=== PATIENT | female | born 1970 | race Two or more races ===

== ENCOUNTER 2017-12-14 09:56 | Outpatient (CLI) | payer MEDICAID ==
[2017-12-14 13:18] LABS: ALBUMIN 3.7 g/dL (3.2-5.5); ALBUMIN/GLOBULIN RATIO 1.1 (1.0-2.2); BILIRUBIN,TOTAL 0.2 mg/dL (0.2-1.0); CALCIUM 8.4 mg/dL (8.5-10.3); CREATININE 0.7 mg/dL (0.4-1.0)
[2017-12-14 13:58] LABS: HEMOGLOBIN A1C 1.42 g/dL; HEMOGLOBIN A1C % 10.3 % (4.6-6.2)
== END 2017-12-14 09:57 | disposition home or self-care (01) ==
LOC: LAB.N 09:56
PROVIDERS: ATTEND Nurse Practitioner Gerontology
DX: E11.9 Type 2 diabetes mellitus without complications (principal); I10 Essential (primary) hypertension
CPT/HCPCS: 36415; 80053; 83036

== ENCOUNTER 2018-08-20 13:00 | Outpatient (CLI) | payer MEDICAID ==
[2018-08-20 18:24] LABS: CALCIUM 8.8 mg/dL (8.5-10.3); CREATININE 0.7 mg/dL (0.4-1.0)
[2018-08-20 18:46] LABS: HB2 TOTAL 15.4 g/dL; HEMOGLOBIN A1C 1.14 g/dL; HEMOGLOBIN A1C % 8.9 % (4.6-6.2)
== END 2018-08-20 23:59 | disposition home or self-care (01) ==
LOC: LAB.N 13:00
PROVIDERS: ATTEND Family Medicine
DX: E11.65 Type 2 diabetes mellitus with hyperglycemia (principal)
CPT/HCPCS: 36415; 80048; 81599; 83036; 84681

== ENCOUNTER 2019-09-29 08:18 | Outpatient (CLI) | payer MEDICAID ==
[2019-09-29 12:56] LABS: BASOPHILS % (AUTO) 0.4 %; EOSINOPHILS # (AUTO) 0.1 10^3/uL (0.0-0.7); EOSINOPHILS % (AUTO) 1.6 %; HGB - HEMOGLOBIN 13.2 g/dL (12.0-16.0); LYMPHOCYTES # (AUTO) 2.9 10^3/uL (1.5-3.5); LYMPHOCYTES % (AUTO) 40.2 %; MEAN CORPUSCULAR HEMOGLOBIN 27.7 pg (27.0-31.0); MEAN CORPUSCULAR HGB CONC 31.7 g/dL (32.0-36.0); MEAN CORPUSCULAR VOLUME 87.2 fL (81.0-99.0); MEAN PLATELET VOLUME 10.2 fL (7.9-10.8); MONOCYTES # (AUTO) 0.5 10^3/uL (0.0-1.0); MONOCYTES % (AUTO) 6.8 %; NEUTROPHILS # (AUTO) 3.7 10^3/uL (1.5-6.6); NEUTROPHILS % (AUTO) 50.9 %; PLT - PLATELET COUNT 282 10^3/uL (130-450); RED BLOOD COUNT 4.77 10^6/uL (4.20-5.40); RED CELL DISTRIBUTION WIDTH 13.2 % (12.0-15.0); WHITE BLOOD COUNT 7.3 x10^3/uL (4.8-10.8)
[2019-09-29 13:19] LABS: ALBUMIN 3.7 g/dL (3.2-5.5); ALKALINE PHOSPHATASE 54 IU/L (42-121); ALT ALANINE AMINOTRANSFERASE 23 IU/L (10-60); BILIRUBIN,TOTAL 0.5 mg/dL (0.2-1.0); BUN - BLOOD UREA NITROGEN 16 mg/dL (6-20); CALCIUM 8.7 mg/dL (8.5-10.3); CARBON DIOXIDE - CO2 23 mmol/L (21-32); CHLORIDE 105 mmol/L (101-111); CHOL/HDL RATIO 4.3 (<4.4); CHOLESTEROL 216 mg/dL; CREATININE 0.7 mg/dL (0.4-1.0); GFR - MDRD 89 (>89); GLUCOSE 161 mg/dL (70-100); HDL CHOLESTEROL 50 mg/dL; LDL CHOLESTEROL,CALCULATED 118 mg/dL; LDL/HDL RATIO 2.4 (<4.4); SODIUM 136 mmol/L (135-145); TOTAL PROTEIN 7.5 g/dL (6.7-8.2); VLDL CHOLESTEROL 48 mg/dL
[2019-09-29 13:22] LABS: HB2 TOTAL 13.2 g/dL; HEMOGLOBIN A1C 0.98 g/dL; HEMOGLOBIN A1C % 8.9 % (4.6-6.2)
[2019-09-29 14:18] LABS: AST ASPARTATE AMINOTRANSFERASE 22 IU/L (10-42)
== END 2019-09-29 23:59 | disposition home or self-care (01) ==
LOC: LAB.N 08:18
PROVIDERS: ATTEND Nurse Practitioner Gerontology
DX: E11.65 Type 2 diabetes mellitus with hyperglycemia (principal); E78.5 Hyperlipidemia, unspecified; I10 Essential (primary) hypertension
CPT/HCPCS: 36415; 80053; 80061; 83036; 83721; 85025

== ENCOUNTER 2020-05-04 10:33 | Outpatient (CLI) | payer MEDICAID ==
[2020-05-04 11:39] LABS: BASOPHILS % (AUTO) 0.5 %; EOSINOPHILS # (AUTO) 0.3 10^3/uL (0.0-0.7); EOSINOPHILS % (AUTO) 3.9 %; HGB - HEMOGLOBIN 13.6 g/dL (12.0-16.0); LYMPHOCYTES # (AUTO) 2.8 10^3/uL (1.5-3.5); LYMPHOCYTES % (AUTO) 33.4 %; MEAN CORPUSCULAR HEMOGLOBIN 28.6 pg (27.0-31.0); MEAN CORPUSCULAR HGB CONC 32.5 g/dL (32.0-36.0); MEAN PLATELET VOLUME 9.7 fL (7.9-10.8); MONOCYTES # (AUTO) 0.6 10^3/uL (0.0-1.0); MONOCYTES % (AUTO) 6.7 %; NEUTROPHILS # (AUTO) 4.7 10^3/uL (1.5-6.6); NEUTROPHILS % (AUTO) 55.1 %; PLT - PLATELET COUNT 270 10^3/uL (130-450); RED BLOOD COUNT 4.75 10^6/uL (4.20-5.40); RED CELL DISTRIBUTION WIDTH 12.5 % (12.0-15.0); WHITE BLOOD COUNT 8.5 x10^3/uL (4.8-10.8)
[2020-05-04 13:20] LABS: ALBUMIN 4.2 g/dL (3.2-5.5); ALBUMIN/GLOBULIN RATIO 1.1 (1.0-2.2); ALKALINE PHOSPHATASE 56 IU/L (42-121); ALT ALANINE AMINOTRANSFERASE 35 IU/L (10-60); AST ASPARTATE AMINOTRANSFERASE 36 IU/L (10-42); BILIRUBIN,TOTAL 0.9 mg/dL (0.2-1.0); BUN - BLOOD UREA NITROGEN 33 mg/dL (6-20); CALCIUM 9.1 mg/dL (8.5-10.3); CARBON DIOXIDE - CO2 21 mmol/L (21-32); CHLORIDE 103 mmol/L (101-111); CHOL/HDL RATIO 4.5 (<4.4); CHOLESTEROL 206 mg/dL; CREATININE 1.1 mg/dL (0.4-1.0); GLUCOSE 161 mg/dL (70-100); HDL CHOLESTEROL 46 mg/dL; LDL CHOLESTEROL,CALCULATED 113 mg/dL; LDL/HDL RATIO 2.5 (<4.4); SODIUM 132 mmol/L (135-145); TOTAL PROTEIN 8.2 g/dL (6.7-8.2); VLDL CHOLESTEROL 47 mg/dL
[2020-05-04 16:07] LABS: HB2 TOTAL 14.9 g/dL; HEMOGLOBIN A1C 1.11 g/dL
== END 2020-05-04 23:59 | disposition home or self-care (01) ==
LOC: LAB.WCP 10:33
PROVIDERS: ATTEND Nurse Practitioner Family
DX: E11.65 Type 2 diabetes mellitus with hyperglycemia (principal); I10 Essential (primary) hypertension; E78.5 Hyperlipidemia, unspecified
CPT/HCPCS: 36415; 80053; 80061; 83036; 83721; 84443; 85025

== ENCOUNTER 2020-10-26 09:06 | Outpatient (CLI) | payer MEDICAID ==
[2020-10-26 11:58] LABS: HEMOGLOBIN A1c% 9.2 % (4.27-6.07)
[2020-10-26 12:21] LABS: CALCIUM 9.4 mg/dL (8.5-10.3); CREATININE 0.8 mg/dL (0.4-1.0)
== END 2020-10-26 23:59 | disposition home or self-care (01) ==
LOC: LAB.WCP 09:06
PROVIDERS: ATTEND Nurse Practitioner Family
DX: E11.8 Type 2 diabetes mellitus with unspecified complications (principal)
CPT/HCPCS: 36415; 80048; 83036

== ENCOUNTER 2020-11-18 00:44 | Emergency (ER) | payer MEDICAID ==
[2020-11-18] MEDS ORDERED: IPRATROPIUM/ALBUTEROL 3 ML NEB INH STA ×3 (01:11→02:54)
[2020-11-18] MEDS ORDERED: ALBUTEROL NEB 2.5 MG/3 ML INH STA (02:34)
--- NOTE | 2020-11-18 02:34 | ED Physician Documentation ---
History of Present Illness - Stated complaint Stated Complaint: SOA/COUGHING - Chief complaint Chief Complaint: Resp - History obtained from History obtained from: Patient - Additonal information Additional information: 50yF with pmh asthma, NIDDM on metformin, htn, recent covid diagnosis 3 weeks ago not requiring hospitalization p/w sob gradually worsening over the past couple days a/w nonproductive cough and wheezing. denies fevers. she is using her inhaler q2h to q4h with some relief but the coughing has progressed to R lower rib pain, aching mild, intermittent, occurring with cough. patient denies fevers, hemoptysis, prior history of clots, leg swelling. Review of Systems Ten Systems: 10 systems reviewed and negative Constitutional: denies: Fever, Chills Cardiac: denies: Chest pain / pressure Respiratory: reports: Dyspnea, Cough GI: denies: Nausea PD PAST MEDICAL HISTORY - Past Medical History Past Medical History: Yes Cardiovascular: Hypertension Respiratory: Asthma Endocrine/Autoimmune: Type 2 diabetes - Past Surgical History Past Surgical History: No - Present Medications Home Medications: Ambulatory Orders Medication Instructions Recorded Confirmed Albuterol Sulfate [Proair Hfa 1 puffs PRN 11/18/20 Inhaler] Canagliflozin [Invokana] 100 mg PO DAILY 11/18/20 11/18/20 Glipizide [Glipizide Xl] 10 mg PO DAILY 11/18/20 11/18/20 Ipratropium/Albuterol [Duoneb] 3 ml INH Q6H PRN #30 neb 11/18/20 Lisinopril [Zestril] 40 mg PO DAILY 11/18/20 11/18/20 Nebulizer and Compressor [Easy Air 1 each MC 1-2XD #1 each 11/18/20 Compressor Nebulizer] Simvastatin [Zocor] 80 mg PO HS 11/18/20 11/18/20 metFORMIN [Glucophage] 1,000 mg PO DAILY 11/18/20 11/18/20 predniSONE [Deltasone] 60 mg PO DAILY 5 Days #15 tab 11/18/20 - Allergies Allergies/Adverse Reactions: Allergies Allergy/AdvReac Type Severity Reaction Status Date / Time No Known Drug Allergies Allergy Verified 11/18/20 01:00 - Social History Does the pt smoke?: No Smoking Status: Never smoker Does the pt drink ETOH?: No Does the pt have substance abuse?: No - Immunizations Immunizations are current?: Yes - POLST Patient has POLST: No PD ED PE NORMAL - Vitals Vital signs reviewed: Yes - General General: Alert and oriented X 3, No acute distress, Well developed/nourished - HEENT HEENT: Atraumatic, PERRL, EOMI - Neck Neck: Supple, no meningeal sign - Cardiac Cardiac: RRR, Other - Respiratory Respiratory: No respiratory distress, Other (BL diffuse expiratory wheezing. no crackles, rhonchi. no increased wob) - Abdomen Abdomen: Non tender, Non distended - Female Female : Deferred - Rectal Rectal: Deferred - Back Back: No spinal TTP - Derm Derm: Normal color - Extremities Extremities: No deformity, No edema - Neuro Neuro: Alert and oriented X 3 - Psych Psych: Normal mood, Normal affect Results - Vitals Vitals: Vital Signs - 24 hr 11/18/20 11/18/20 11/18/20 00:54 01:25 02:29 Temperature 36.3 C L Heart Rate 84 78 76 Respiratory 16 18 16 Rate Blood Pressure 150/85 H O2 Saturation 96 11/18/20 11/18/20 11/18/20 02:40 02:59 03:00 Temperature 36.8 C Heart Rate 76 78 75 Respiratory 16 18 16 Rate Blood Pressure 144/57 H O2 Saturation 98 Oxygen O2 Source Room air PD MEDICAL DECISION MAKING - ED course ED course: 50-year-old woman presents with asthma exacerbation in the setting of convalescence from COVID-19 a couple weeks prior. Patient has had significant improvement with nebulizer treatments in the emergency department. Her chest x- ray appears clear and her EKG has no contributory findings. We will have her follow-up with her primary doctor this week. Return precautions given. Departure - Departure Disposition: 01 Home, Self Care Clinical Impression: Asthma exacerbation Condition: Good Instructions: Asthma Dc Prescriptions: predniSONE [Deltasone] 60 mg PO DAILY 5 Days #15 tab Ipratropium/Albuterol [Duoneb] 3 ml INH Q6H PRN #30 neb PRN Reason: Asthma Nebulizer and Compressor [Easy Air Compressor Nebulizer] 1 each MC 1-2XD #1 each Comments: You were seen in the emergency department for an asthma exacerbation after having COVID-19. You do not have pneumonia on your x-ray and your EKG doesn't show any concerning findings. We treated you with nebulized albuterol and ipratropium and you had significant improvement in your lung exam. I am prescribing steroids and nebulizer treatments for home. Return to the emergency department if you start to cough up blood, have leg swelling, fevers, severe shortness of breath that doesn't respond to your asthma treatments, or other concerning symptoms. Follow up with your primary doctor this week. [facility]. [address] [place] [id number] ~6.7 vt
[2020-11-18 03:35] VITALS: BP 147/62
--- NOTE | 2020-11-18 09:02 | XRAY Report ---
PROCEDURE: Chest 1 View X-Ray INDICATIONS: Short of breath TECHNIQUE: One view of the chest was acquired. COMPARISON: None FINDINGS: Surgical changes and devices: None. Lungs and pleura: No pleural effusions or pneumothorax. Lungs are clear. Mediastinum: Mediastinal contours appear normal. Heart size is normal. Bones and chest wall: No suspicious bony lesions. Overlying soft tissues appear unremarkable. IMPRESSION: Normal portable chest. Note: No significant discrepancy from the preliminary report. Reviewed by: Jeovany Dennis MD on 11/18/2020 8:01 AM [facility] Approved by: Jeovany Dennis MD on 11/18/2020 8:01 AM [facility] Station ID: [id number]
== END 2020-11-18 03:36 | disposition home or self-care (01) ==
LOC: ED 00:44
DX: J45.901 Unspecified asthma with (acute) exacerbation (principal); Z86.16 Personal history of COVID-19; E11.9 Type 2 diabetes mellitus without complications; Z79.84 Long term (current) use of oral hypoglycemic drugs; I10 Essential (primary) hypertension
CPT/HCPCS: 93005; 94640; 99284; 99285

== ENCOUNTER 2020-11-30 08:07 | Emergency (ER) | payer MEDICAID ==
--- NOTE | 2020-11-30 08:14 | ED Physician Documentation ---
PD HPI DYSPNEA - Stated complaint Stated Complaint: SOA - History obtained from History obtained from: Patient - History of Present Illness Timing - onset: How many days ago (severral) Timing - onset during: Light activity Timing - duration: Days (several) Timing - details: Gradual onset, Still present Inciting event(s): Other (history of asthma and has had flare up for few weeks, had improved with steroids and increased MDI. Now with worsening symptoms again the past few days. No fever, mild clear sputum.). No: Out of meds, URI Improved by: No: Inhaler/neb (had been helping but not the past day) Worsened by: Exertion, Coughing. No: Laying flat Associated symptoms: Cough, Wheezing. No: Fever, Hemoptysis, Chest pain / discomfort, Bilateral edema Similar symptoms before: Diagnosis (asthma exac) Recently seen: Emergency Dept (couple weeks ago and Rx with Prednisone and Albuterol MDI with Rx for nebulizer as well.) Review of Systems Constitutional: reports: Myalgias, Fatigue. denies: Fever, Chills Nose: denies: Rhinorrhea / runny nose, Congestion Throat: denies: Sore throat Cardiac: denies: Chest pain / pressure Respiratory: reports: Dyspnea, Cough, Wheezing. denies: Hemoptysis GI: denies: Abdominal Pain, Vomiting, Diarrhea Skin: denies: Rash Musculoskeletal: denies: Back pain, Extremity swelling PD PAST MEDICAL HISTORY - Past Medical History Cardiovascular: Hypertension Respiratory: Asthma Endocrine/Autoimmune: Type 2 diabetes - Past Surgical History Past Surgical History: No - Present Medications Home Medications: Ambulatory Orders Medication Instructions Recorded Confirmed Albuterol Sulfate [Proair Hfa 1 puffs PO DAILY 11/18/20 11/30/20 Inhaler] Canagliflozin [Invokana] 100 mg PO DAILY 11/18/20 11/30/20 Glipizide [Glipizide Xl] 10 mg PO DAILY 11/18/20 11/30/20 Ipratropium/Albuterol [Duoneb] 3 ml INH Q6H PRN #30 neb 11/18/20 11/30/20 Lisinopril [Zestril] 40 mg PO DAILY 11/18/20 11/30/20 Nebulizer and Compressor [Easy Air 1 each MC 1-2XD #1 each 11/18/20 11/30/20 Compressor Nebulizer] Simvastatin [Zocor] 80 mg PO HS 11/18/20 11/30/20 metFORMIN [Glucophage] 1,000 mg PO DAILY 11/18/20 11/30/20 predniSONE [Deltasone] 60 mg PO DAILY 5 Days #15 tab 11/18/20 11/30/20 Albuterol Sulf [Ventolin Hfa 3 - 4 puffs INH Q4HR PRN #1 inhaler 11/30/20 Inhaler] Benzonatate [Tessalon] 100 mg PO TID PRN #20 cap 11/30/20 Doxycycline Monohydrate 150 mg PO BID #14 cap 11/30/20 dexAMETHasone [Decadron] 4 mg PO DAILY #7 tablet 11/30/20 - Allergies Allergies/Adverse Reactions: Allergies Allergy/AdvReac Type Severity Reaction Status Date / Time No Known Drug Allergies Allergy Verified 11/30/20 08:13 - Social History Does the pt smoke?: No Smoking Status: Never smoker Does the pt drink ETOH?: No Does the pt have substance abuse?: No - Immunizations Immunizations are current?: Yes - POLST Patient has POLST: No PD ED PE NORMAL - Vitals Vital signs reviewed: Yes - General General: Alert and oriented X 3, Well developed/nourished - HEENT HEENT: Ears normal, Moist mucous membranes, Pharynx benign - Neck Neck: Supple, no meningeal sign, No adenopathy - Cardiac Cardiac: RRR (mild tachycardia but regular), No murmur - Respiratory Respiratory: No respiratory distress (able to talk in sentences. no accessory muscle use. ). No: Clear bilaterally (diffuse holoexpiratory wheezing. No coarse sounds. ) - Abdomen Abdomen: Soft, Non tender - Derm Derm: Normal color, Warm and dry - Extremities Extremities: No tenderness to palpate, Normal ROM s pain, No edema, No calf tenderness / cord - Neuro Neuro: Alert and oriented X 3, No motor deficit, Normal speech Results - Vitals Vitals: Vital Signs - 24 hr 11/30/20 11/30/20 11/30/20 08:13 08:56 09:43 Temperature 36.3 C L Heart Rate 106 H 86 86 Respiratory 24 20 18 Rate Blood Pressure 178/87 H 119/74 O2 Saturation 95 97 11/30/20 11/30/20 11/30/20 09:54 10:24 10:25 Temperature Heart Rate 80 87 85 Respiratory 14 15 13 Rate Blood Pressure 121/65 O2 Saturation 97 11/30/20 11:04 Temperature Heart Rate 87 Respiratory 16 Rate Blood Pressure 126/63 O2 Saturation 96 Oxygen O2 Source Room air - EKG (time done) 08:11 Rate: Rate (enter#) (93) Rhythm: NSR [place]: Normal Intervals: Normal [place] QRS: Normal Ischemia: Normal ST segments. No: ST elevation c/w ischemia, ST depression - Rads (name of study) chest xray Radiology: Prelim report reviewed (no infiltrates), See rad report PD MEDICAL DECISION MAKING - ED course Complexity details: reviewed results (no infiltrates on xray.), re-evaluated patient (improved quite a bit after 3 nebs. ), considered differential, d/w patient Departure - Departure Disposition: 01 Home, Self Care Clinical Impression: Exacerbation of asthma Qualifiers: Asthma severity: mild Asthma persistence: intermittent Qualified Code(s): J45.21 - Mild intermittent asthma with (acute) exacerbation Dyspnea Qualifiers: Dyspnea type: shortness of breath Qualified Code(s): R06.02 - Shortness of breath Condition: Stable Record reviewed to determine appropriate education?: Yes Follow-Up: SANDRA CARY, ROSALES, SR. MERCHANDISE PLANNER [Primary Care Provider] - Prescriptions: Albuterol Sulf [Ventolin Hfa Inhaler] 3 - 4 puffs INH Q4HR PRN #1 inhaler PRN Reason: Shortness Of Air/Wheezing dexAMETHasone [Decadron] 4 mg PO DAILY #7 tablet Doxycycline Monohydrate 150 mg PO BID #14 cap Benzonatate [Tessalon] 100 mg PO TID PRN #20 cap PRN Reason: Cough Comments: New with your inhaler or the prescribed previously nebulizer 4 times a day for the next week and extra times as needed for wheezing. Decadron steroid daily for the next week. Add benzonatate if needed for cough. Your chest x-ray does not show any pneumonia. With the persistent asthma flareup, there is concern for possible bronchial infection and so at this point I would add doxycycline antibiotic twice daily for a week. Recheck if not improved well over the next several days return if worsening. Forms: Activity restrictions Discharge Date/Time: 11/30/20 11:04
[2020-11-30] MEDS ORDERED: IPRATROPIUM/ALBUTEROL 3 ML NEB INH STA (08:34)
[2020-11-30] MEDS ORDERED: BENZONATATE 100 MG CAPSULE PO STA (08:35)
[2020-11-30] MEDS ORDERED: CHERRY SYRUP 10 ML UDC PO ONE (08:35)
[2020-11-30] MEDS ORDERED: DEXAMETHASONE 10 MG/ML VIAL PO STA (08:35)
--- NOTE | 2020-11-30 09:13 | XRAY Report ---
PROCEDURE: Chest 1 View X-Ray INDICATIONS: chest pain/cough/wheeze TECHNIQUE: One view of the chest was acquired. COMPARISON: 11/18/2020 FINDINGS: Surgical changes and devices: None. Lungs and pleura: No pleural effusions or pneumothorax. Lungs are clear. Mediastinum: Mediastinal contours appear normal. Heart size is normal. Bones and chest wall: No suspicious bony lesions. Overlying soft tissues appear unremarkable. IMPRESSION: No acute disease. Reviewed by: Rony Humphreys MD on 11/30/2020 9:12 AM [facility] Approved by: Rony Humphreys MD on 11/30/2020 9:12 AM [facility] Station ID: [id number]
[2020-11-30] MEDS ORDERED: ALBUTEROL NEB 2.5 MG/3 ML INH STA ×2 (09:27→10:04)
[2020-11-30] MEDS ORDERED: DOXYCYCLINE 100 MG TABLET PO STA (10:04)
[2020-11-30 11:05] VITALS: BP 126/63
== END 2020-11-30 11:04 | disposition home or self-care (01) ==
LOC: ED 08:07
DX: J45.21 Mild intermittent asthma with (acute) exacerbation (principal); I10 Essential (primary) hypertension; E11.9 Type 2 diabetes mellitus without complications; Z79.84 Long term (current) use of oral hypoglycemic drugs
CPT/HCPCS: 71045; 93005; 94150; 94640; 94664; 99284; 99285; A9270

== ENCOUNTER 2021-02-22 08:00 | Outpatient (CLI) | payer MEDICAID ==
[2021-02-22 12:17] LABS: ESTIMATED AVERAGE GLUCOSE 249 mg/dL (70-100); HEMOGLOBIN A1c% 10.3 % (4.27-6.07)
[2021-02-22 12:21] LABS: CALCIUM 9.1 mg/dL (8.5-10.3); CREATININE 0.8 mg/dL (0.4-1.0); POTASSIUM 4.2 mmol/L (3.5-5.0)
== END 2021-02-22 23:59 | disposition home or self-care (01) ==
LOC: LAB.WCP 08:00
PROVIDERS: ATTEND Nurse Practitioner Family
DX: E11.9 Type 2 diabetes mellitus without complications (principal)
CPT/HCPCS: 36415; 80048; 83036

== ENCOUNTER 2021-05-21 08:00 | Outpatient (CLI) | payer MEDICAID | END 2021-05-21 23:59 | disposition home or self-care (01) | LOC: LAB.N 08:00 | PROVIDERS: ATTEND Nurse Practitioner | DX: R07.0 Pain in throat (principal) | CPT/HCPCS: 87070 ==

== ENCOUNTER 2021-08-26 07:14 | Outpatient (CLI) | payer MEDICAID ==
[2021-08-26 12:27] LABS: ALBUMIN 3.9 g/dL (3.2-5.5); ALBUMIN/GLOBULIN RATIO 1.2 (1.0-2.2); ALKALINE PHOSPHATASE 42 IU/L (42-121); ALT ALANINE AMINOTRANSFERASE 34 IU/L (10-60); AST ASPARTATE AMINOTRANSFERASE 25 IU/L (10-42); BILIRUBIN,TOTAL 0.3 mg/dL (0.2-1.0); BUN - BLOOD UREA NITROGEN 10 mg/dL (6-20); CALCIUM 9.2 mg/dL (8.5-10.3); CARBON DIOXIDE - CO2 24 mmol/L (21-32); CHLORIDE 103 mmol/L (101-111); CHOL/HDL RATIO 3.5 (<4.4); CHOLESTEROL 193 mg/dL; CREATININE 0.7 mg/dL (0.4-1.0); GFR - MDRD 88 (>89); GLUCOSE 337 mg/dL (70-100); HDL CHOLESTEROL 55 mg/dL; LDL CHOLESTEROL,CALCULATED 112 mg/dL; POTASSIUM 3.4 mmol/L (3.5-5.0); SODIUM 137 mmol/L (135-145); TOTAL PROTEIN 7.1 g/dL (6.7-8.2); TRIGLYCERIDES 132 mg/dL; VLDL CHOLESTEROL 26 mg/dL
[2021-08-26 12:37] LABS: BASOPHILS % (AUTO) 0.3 %; EOSINOPHILS # (AUTO) 0.4 10^3/uL (0.0-0.7); EOSINOPHILS % (AUTO) 4.3 %; HCT - HEMATOCRIT 41.6 % (37.0-47.0); HGB - HEMOGLOBIN 13.5 g/dL (12.0-16.0); LYMPHOCYTES # (AUTO) 3.3 10^3/uL (1.5-3.5); LYMPHOCYTES % (AUTO) 38.9 %; MEAN CORPUSCULAR HEMOGLOBIN 28.4 pg (27.0-31.0); MEAN CORPUSCULAR HGB CONC 32.5 g/dL (32.0-36.0); MEAN CORPUSCULAR VOLUME 87.4 fL (81.0-99.0); MONOCYTES # (AUTO) 0.6 10^3/uL (0.0-1.0); MONOCYTES % (AUTO) 7.5 %; NEUTROPHILS # (AUTO) 4.2 10^3/uL (1.5-6.6); NEUTROPHILS % (AUTO) 48.8 %; PLT - PLATELET COUNT 263 10^3/uL (130-450); RED BLOOD COUNT 4.76 10^6/uL (4.20-5.40); RED CELL DISTRIBUTION WIDTH 12.8 % (12.0-15.0); WHITE BLOOD COUNT 8.6 x10^3/uL (4.8-10.8)
[2021-08-26 12:40] LABS: ESTIMATED AVERAGE GLUCOSE 309 mg/dL (70-100); HEMOGLOBIN A1c% 12.4 % (4.27-6.07)
[2021-08-26 12:53] LABS: BILIRUBIN,URINE NEGATIVE (NEGATIVE); GLUCOSE, URINE (UA) >=1000 mg/dL (NEGATIVE); KETONES,URINE (UA) NEGATIVE (NEGATIVE); LEUKOCYTE ESTERASE, URINE NEGATIVE (NEGATIVE); NITRITE,URINE NEGATIVE (NEGATIVE); OCCULT BLOOD,URINE NEGATIVE (NEGATIVE); PH,URINE 5.5 PH (5.0-7.5); PROTEIN,URINE NEGATIVE (NEGATIVE); UROBILINOGEN,URINE 0.2 (NORMAL) E.U./dL (NORMAL)
[2021-08-26 13:01] LABS: CLARITY,URINE CLEAR (CLEAR)
[2021-08-26 13:07] LABS: CREATININE,URINE 100.2 mg/dL; MICROALBUMIN,URINE 0.3 mg/dL (0-300.0)
[2021-08-26 13:21] LABS: THYROID STIMULATING HORMONE 0.49 uIU/mL (0.34-5.60)
[2021-08-26 13:43] LABS: BACTERIA,URINE Rare /HPF (None Seen); RBC,URINE None Seen /HPF (0-5); SQUAMOUS EPITHELIAL CELL,UR FEW Squamous (<= Few); WBC,URINE 0-3 /HPF (0-5)
== END 2021-08-26 07:15 | disposition home or self-care (01) ==
LOC: LAB.N 07:14
PROVIDERS: ATTEND Nurse Practitioner
DX: I10 Essential (primary) hypertension (principal); E78.5 Hyperlipidemia, unspecified; E66.9 Obesity, unspecified; R53.83 Other fatigue
CPT/HCPCS: 36415; 80053; 80061; 81001; 82043; 82570; 83036; 83721; 84443; 85025; 87086

== ENCOUNTER 2021-10-04 08:00 | Outpatient (CLI) | payer MEDICAID ==
[2021-10-04 14:06] LABS: ESTIMATED AVERAGE GLUCOSE 280 mg/dL (70-100); HEMOGLOBIN A1c% 11.4 % (4.27-6.07)
== END 2021-10-04 23:59 ==
LOC: LAB.WCP 08:00
PROVIDERS: ATTEND Nurse Practitioner
DX: E11.8 Type 2 diabetes mellitus with unspecified complications (principal)
CPT/HCPCS: 36415; 83036

== ENCOUNTER 2021-12-30 08:00 | Outpatient (CLI) | payer MEDICAID ==
[2021-12-30 20:41] LABS: BASOPHILS % (AUTO) 0.4 %; EOSINOPHILS # (AUTO) 0.3 10^3/uL (0.0-0.7); EOSINOPHILS % (AUTO) 3.3 %; HCT - HEMATOCRIT 39.9 % (37.0-47.0); HGB - HEMOGLOBIN 12.8 g/dL (12.0-16.0); LYMPHOCYTES # (AUTO) 4.4 10^3/uL (1.5-3.5); LYMPHOCYTES % (AUTO) 43.8 %; MEAN CORPUSCULAR HEMOGLOBIN 27.3 pg (27.0-31.0); MEAN CORPUSCULAR HGB CONC 32.1 g/dL (32.0-36.0); MEAN CORPUSCULAR VOLUME 85.1 fL (81.0-99.0); MEAN PLATELET VOLUME 10.2 fL (7.9-10.8); MONOCYTES # (AUTO) 0.6 10^3/uL (0.0-1.0); NEUTROPHILS # (AUTO) 4.7 10^3/uL (1.5-6.6); NEUTROPHILS % (AUTO) 46.3 %; PLT - PLATELET COUNT 267 10^3/uL (130-450); RED BLOOD COUNT 4.69 10^6/uL (4.20-5.40); RED CELL DISTRIBUTION WIDTH 12.6 % (12.0-15.0); WHITE BLOOD COUNT 10.1 x10^3/uL (4.8-10.8)
[2021-12-30 20:48] LABS: BILIRUBIN,URINE NEGATIVE (NEGATIVE); GLUCOSE, URINE (UA) 250 mg/dL (NEGATIVE); KETONES,URINE (UA) TRACE mg/dL (NEGATIVE); LEUKOCYTE ESTERASE, URINE NEGATIVE (NEGATIVE); NITRITE,URINE NEGATIVE (NEGATIVE); OCCULT BLOOD,URINE NEGATIVE (NEGATIVE); PROTEIN,URINE 30 mg/dL (NEGATIVE); UROBILINOGEN,URINE 0.2 (NORMAL) E.U./dL (NORMAL)
[2021-12-30 20:51] LABS: CLARITY,URINE CLOUDY (CLEAR)
[2021-12-30 20:57] LABS: AMORPHOUS SEDIMENT,UR Marked /LPF; BACTERIA,URINE Rare /HPF (None Seen); RBC,URINE None Seen /HPF (0-5); SQUAMOUS EPITHELIAL CELL,UR FEW Squamous (<= Few); WBC,URINE 0-3 /HPF (0-5)
[2021-12-30 20:58] LABS: CRYSTALS,URINE 0-2 Calcium Oxalate /LPF
[2021-12-30 20:58] LABS: ALBUMIN/GLOBULIN RATIO 1.3 (1.0-2.2); BILIRUBIN,TOTAL 0.3 mg/dL (0.2-1.0); POTASSIUM 3.4 mmol/L (3.5-5.0); TOTAL PROTEIN 7.2 g/dL (6.7-8.2)
== END 2021-12-30 23:59 | disposition home or self-care (01) ==
LOC: LAB.N 08:00
PROVIDERS: ATTEND Family Medicine
DX: R10.9 Unspecified abdominal pain (principal)
CPT/HCPCS: 36415; 80053; 81001; 82150; 83690; 85025; 87086

== ENCOUNTER 2022-02-10 08:20 | Outpatient (CLI) | payer MEDICAID ==
--- NOTE | 2022-02-10 12:30 | Ultrasound Report ---
PROCEDURE: Abdomen Complete INDICATIONS: ABD PAIN TECHNIQUE: Real-time scanning was performed of the abdominal and retroperitoneal organs, with image documentatio n. COMPARISON: None. FINDINGS: Liver: Liver is normal in size and homogeneous in echotexture. Liver is diffusely echogenic. Gallbladder: Gallbladder sonographically normal. No gallstones. Gallbladder wall measures 1.2 mm. No pericholecystic fluid. No sonographic Fernandes sign Biliary ducts: Intrahepatic bile ducts are non-dilated. Extrahepatic bile duct caliber measures 1.9 mm. Normal is 6-7 mm or less in diameter, or 10 mm or less post-cholecystectomy. Pancreas: Visualized portions of the pancreas are sonographically normal. Spleen: Spleen is normal in size and homogeneous in echotexture. Kidneys: Kidneys are normal in size and echotexture. Right kidney measures 12.1 cm long; left kidne y measures 12.3 cm long. No hydronephrosis or nephrolithiasis. No solid masses. Aorta: Visualized aorta is normal in caliber at less than 3 cm. Iliacs: Proximal common iliac arteries are normal in caliber at less than 2.5 cm. IVC: Intrahepatic inferior vena cava is patent. Miscellaneous: No free abdominal fluid. IMPRESSION: Hepatic steatosis. No sonographic evidence of cholelithiasis or cholecystitis. If there is continued clinical concern fo r cholecystitis, consider nuclear medicine scan for additional evaluation. Reviewed by: Ju Sinclair MD, PhD on 02/10/2022 12:28 PM PDT Approved by: Ju Sinclair MD, PhD on 02/10/2022 12:28 PM PDT Station ID: [id number]
== END 2022-02-10 08:21 | disposition home or self-care (01) ==
LOC: DI 08:20
PROVIDERS: ATTEND Family Medicine
DX: K76.0 Fatty (change of) liver, not elsewhere classified (principal); R10.9 Unspecified abdominal pain

== ENCOUNTER 2022-05-26 08:52 | Outpatient (CLI) | payer MEDICAID ==
[2022-05-26 12:06] LABS: BASOPHILS % (AUTO) 0.3 %; EOSINOPHILS % (AUTO) 0.1 %; HCT - HEMATOCRIT 37.4 % (37.0-47.0); LYMPHOCYTES # (AUTO) 2.7 10^3/uL (1.5-3.5); LYMPHOCYTES % (AUTO) 20.4 %; MEAN CORPUSCULAR HEMOGLOBIN 27.4 pg (27.0-31.0); MEAN CORPUSCULAR HGB CONC 32.1 g/dL (32.0-36.0); MEAN CORPUSCULAR VOLUME 85.4 fL (81.0-99.0); MEAN PLATELET VOLUME 10.3 fL (7.9-10.8); MONOCYTES # (AUTO) 0.8 10^3/uL (0.0-1.0); NEUTROPHILS # (AUTO) 9.7 10^3/uL (1.5-6.6); NEUTROPHILS % (AUTO) 72.7 %; PLT - PLATELET COUNT 239 10^3/uL (130-450); RED BLOOD COUNT 4.38 10^6/uL (4.20-5.40); RED CELL DISTRIBUTION WIDTH 13.5 % (12.0-15.0); WHITE BLOOD COUNT 13.4 x10^3/uL (4.8-10.8)
[2022-05-26 13:27] LABS: ESTIMATED AVERAGE GLUCOSE 240 mg/dL (70-100)
[2022-05-26 13:33] LABS: ALBUMIN 3.5 g/dL (3.2-5.5); ALBUMIN/GLOBULIN RATIO 0.9 (1.0-2.2); BILIRUBIN,TOTAL 0.6 mg/dL (0.2-1.0); CALCIUM 8.8 mg/dL (8.5-10.3); CREATININE 0.7 mg/dL (0.4-1.0); POTASSIUM 3.8 mmol/L (3.5-5.0); TOTAL PROTEIN 7.3 g/dL (6.7-8.2)
[2022-05-26 13:41] LABS: CREATININE,URINE 159.5 mg/dL; MICROALBUM/CREATININE RATIO,UR 7.5 ug/mg (<30.0); MICROALBUMIN,URINE 1.2 mg/dL (0-300.0)
== END 2022-05-26 08:53 | disposition home or self-care (01) ==
LOC: LAB.N 08:52
PROVIDERS: ATTEND Nurse Practitioner
DX: E11.8 Type 2 diabetes mellitus with unspecified complications (principal)
CPT/HCPCS: 36415; 80053; 82043; 82570; 83036; 85025

== ENCOUNTER 2022-07-26 09:48 | Emergency (ER) | payer MEDICAID ==
--- NOTE | 2022-07-26 10:02 | ED Physician Documentation ---
PD HPI FOCAL NEURO - Stated complaint Stated Complaint: DIZZY/NUMB TONGUE - History obtained from History obtained from: Patient, Family, Other (area manager) - Additional information Additional information: 52-year-old woman with relatively poorly controlled type 2 diabetes presents with about 3 to 4 days of numbness around both sides of the tongue and periorbital areas that is symmetric, nausea and dizziness as well as shortness of breath. Note made that the area manager tablet did not seem to be working but we were able to get a [employer] fluent in Tagalog to aid in history taking. She been lightheaded for several days, no vertigo. We clarified that its not really so much tongue numbness as it is being inability to taste. She had a cough productive of clear phlegm and shortness of breath and nausea. No fevers but she has had chills. Other than diabetes she has a history of hypertension. She has not checked her blood sugar today but she did check it yesterday, and has both mostly been in the 90s to 1 teens. Review of Systems Ten Systems: 10 systems reviewed and negative Constitutional: reports: Chills, Fatigue. denies: Fever Nose: denies: Rhinorrhea / runny nose Throat: denies: Sore throat Cardiac: denies: Chest pain / pressure Respiratory: reports: Dyspnea, Cough PD PAST MEDICAL HISTORY - Past Medical History Cardiovascular: Hypertension Respiratory: Asthma Endocrine/Autoimmune: Type 2 diabetes - Past Surgical History Past Surgical History: No - Present Medications Home Medications: Ambulatory Orders Medication Instructions Recorded Confirmed Albuterol Sulfate [Proair Hfa 1 puffs PO DAILY 11/18/20 11/30/20 Inhaler] Canagliflozin [Invokana] 100 mg PO DAILY 11/18/20 11/30/20 Glipizide [Glipizide Xl] 10 mg PO DAILY 11/18/20 11/30/20 Ipratropium/Albuterol [Duoneb] 3 ml INH Q6H PRN #30 neb 11/18/20 11/30/20 Lisinopril [Zestril] 40 mg PO DAILY 11/18/20 11/30/20 Nebulizer and Compressor [Easy Air 1 each MC 1-2XD #1 each 11/18/20 11/30/20 Compressor Nebulizer] Simvastatin [Zocor] 80 mg PO HS 11/18/20 11/30/20 metFORMIN [Glucophage] 1,000 mg PO DAILY 11/18/20 11/30/20 predniSONE [Deltasone] 60 mg PO DAILY 5 Days #15 tab 11/18/20 11/30/20 Albuterol Sulf [Ventolin Hfa 3 - 4 puffs INH Q4HR PRN #1 inhaler 11/30/20 Inhaler] Benzonatate [Tessalon] 100 mg PO TID PRN #20 cap 11/30/20 Doxycycline Monohydrate 150 mg PO BID #14 cap 11/30/20 dexAMETHasone [Decadron] 4 mg PO DAILY #7 tablet 11/30/20 Pantoprazole [Protonix] 40 mg PO DAILY #30 tablet 01/02/22 Sucralfate [Carafate] 1 gm PO ACHS #60 tablet 01/02/22 Ondansetron Odt [Zofran] 4 mg TL Q6H PRN #10 tablet 07/26/22 - Allergies Allergies/Adverse Reactions: Allergies Allergy/AdvReac Type Severity Reaction Status Date / Time No Known Drug Allergies Allergy Verified 11/30/20 08:13 - Social History Does the pt smoke?: No Smoking Status: Never smoker Does the pt drink ETOH?: No Does the pt have substance abuse?: No - Immunizations Immunizations are current?: Yes - POLST Patient has POLST: No PD ED PE NORMAL - Vitals Vital signs reviewed: Yes - General General: Alert and oriented X 3, No acute distress - HEENT HEENT: PERRL, EOMI - Neck Neck: Supple, no meningeal sign, No bony TTP - Cardiac Cardiac: RRR, No murmur - Respiratory Respiratory: No respiratory distress, Clear bilaterally - Abdomen Abdomen: Non tender - Back Back: No CVA TTP, No spinal TTP - Derm Derm: Normal color, Warm and dry - Extremities Extremities: No edema, No calf tenderness / cord - Neuro Neuro: Alert and oriented X 3, No motor deficit, No sensory deficit, Normal speech Eye Opening: Spontaneous Motor: Obeys Commands Verbal: Oriented GCS Score: 15 - Psych Psych: Normal mood, Normal affect NIHSS - Time Time: 10:01 - Level of Consciousness Level of consciousness: (0) Alert, Keenly responsive LOC Questions: (0) Answers both Q's correct LOC Commands: (0) Performs both correctly - Gaze Best Gaze: (0) Normal - Visual Visual: (0) No loss - Facial Palsy Facial Palsy: (0) Normal, symmetrical movement - Motor Arms (both separate) Motor Arm (right): (0) No drift Motor Arm (left): (0) No drift - Motor Legs (both separate) Motor Leg (right): (0) No drift Motor Leg (left): (0) No drift - Limb Ataxia Limb Ataxia: (0) Absent - Sensory Sensory: (0) Normal - Best Language Best Language: (0) No aphasia - Dysarthria Dysarthria: (0) Normal - Extinction and Inattention (formally neg Extinction and inattention: (0) No abnormality - Total Score/Results Total Score/Result: 0 Results - Vitals Vitals: Vital Signs - 24 hr 07/26/22 07/26/22 07/26/22 09:55 10:35 11:05 Temperature 37.0 C Heart Rate 83 76 73 Respiratory 19 23 14 Rate Blood Pressure 153/78 H 150/79 H 146/100 H O2 Saturation 100 100 100 07/26/22 07/26/22 11:30 12:00 Temperature Heart Rate 73 74 Respiratory 22 22 Rate Blood Pressure 133/78 H 143/73 H O2 Saturation 99 100 Oxygen O2 Source Room air - EKG (time done) 0951 Rate: Rate (enter#) (81) Rhythm: NSR [place]: LAD Intervals: Normal CT QRS: Low voltage Ischemia: Q waves (v3/4) Compare to prior EKG: Changed from prior EKG (new low voltage and new qwaves septal c/w 11/30/20) - Labs Labs: Laboratory Tests 07/26/22 07/26/22 07/26/22 10:21 10:21 10:21 WBC 11.2 H RBC 4.84 Hgb 13.4 Hct 41.7 MCV 86.2 MCH 27.7 MCHC 32.1 RDW 12.5 Plt Count 260 MPV 9.3 Neut # (Auto) 6.6 Lymph # (Auto) 3.6 H Garza # (Auto) 0.7 Eos # (Auto) 0.2 Baso # (Auto) 0.1 Absolute Nucleated RBC 0.00 Nucleated RBC % 0.0 Sodium 136 Potassium 4.1 Chloride 104 Carbon Dioxide 21 Anion Gap 11.0 BUN 20 Creatinine 1.0 Estimated GFR (MDRD) 58 L Glucose 284 H Calcium 9.3 Total Bilirubin 0.7 AST 32 ALT 35 Alkaline Phosphatase 61 Troponin I High Sens 3.9 Total Protein 7.4 Albumin 3.7 Globulin 3.7 Albumin/Globulin Ratio 1.0 Lipase 36 Nasal Adenovirus (PCR) Nasal B. parapertussis DNA (PCR) Nasal Coronavir 229E PCR Nasal Coronavir HKU1 PCR Nasal Coronavir NL63 PCR Nasal Coronavir OC43 PCR Nasal Enterovir/Rhinovir PCR Nasal Influenza B PCR Nasal Influenza A PCR Nasal Parainfluen 1 PCR Nasal Parainfluen 2 PCR Nasal Parainfluen 3 PCR Nasal Parainfluen 4 PCR Nasal RSV (PCR) Nasal B.pertussis DNA PCR Nasal C.pneumoniae (PCR) Matthew Human Metapneumo PCR Nasal M.pneumoniae (PCR) Nasal SARS-CoV-2 (PCR) 07/26/22 10:57 WBC RBC Hgb Hct MCV MCH MCHC RDW Plt Count MPV Neut # (Auto) Lymph # (Auto) Garza # (Auto) Eos # (Auto) Baso # (Auto) Absolute Nucleated RBC Nucleated RBC % Sodium Potassium Chloride Carbon Dioxide Anion Gap BUN Creatinine Estimated GFR (MDRD) Glucose Calcium Total Bilirubin AST ALT Alkaline Phosphatase Troponin I High Sens Total Protein Albumin Globulin Albumin/Globulin Ratio Lipase Nasal Adenovirus (PCR) NOT DETECTED Nasal B. parapertussis DNA (PCR) NOT DETECTED Nasal Coronavir 229E PCR NOT DETECTED Nasal Coronavir HKU1 PCR NOT DETECTED Nasal Coronavir NL63 PCR NOT DETECTED Nasal Coronavir OC43 PCR NOT DETECTED Nasal Enterovir/Rhinovir PCR NOT DETECTED Nasal Influenza B PCR NOT DETECTED Nasal Influenza A PCR NOT DETECTED Nasal Parainfluen 1 PCR NOT DETECTED Nasal Parainfluen 2 PCR NOT DETECTED Nasal Parainfluen 3 PCR NOT DETECTED Nasal Parainfluen 4 PCR NOT DETECTED Nasal RSV (PCR) NOT DETECTED Nasal B.pertussis DNA PCR NOT DETECTED Nasal C.pneumoniae (PCR) NOT DETECTED Matthew Human Metapneumo PCR NOT DETECTED Nasal M.pneumoniae (PCR) NOT DETECTED Nasal SARS-CoV-2 (PCR) NOT DETECTED - Rads (name of study) Single view chest x-ray is unremarkable Radiology: EMP read contemporaneously PD MEDICAL DECISION MAKING - ED course ED course: 52-year-old woman with history of diabetes presents with decreased taste, cough shortness of breath. COVID considered and tested for same and negative. Otherwise her work-up was negative with normal EKG, chest x-ray, and lab work save blood sugar of 284 and very mild leukocytosis of unclear etiology. Close watchful waiting was advised. She was feeling much better after the administration of IV fluids and Zofran. No evidence of stroke. Departure - Departure Disposition: 01 Home, Self Care Clinical Impression: Dizziness, Cough Condition: Good Record reviewed to determine appropriate education?: Yes Instructions: ED Dizziness UKO Prescriptions: Ondansetron Odt [Zofran] 4 mg TL Q6H PRN #10 tablet PRN Reason: Nausea / Vomiting Comments: You are seen today for decreased taste, nausea. Also cough. Your chest x-ray is normal. COVID test negative. Lab work basically unremarkable with the exception of a blood sugar of 284, keep an eye on that. Return for new or worsening symptoms. Follow-up with your doctor early this week for recheck and less better. Forms: Activity restrictions
[2022-07-26] MEDS ORDERED: ONDANSETRON 4 MG/2 ML VIAL IVP STA (10:11)
[2022-07-26] MEDS ORDERED: SODIUM CHLORIDE 0.9% 1,000 ML IV STA (10:11)
[2022-07-26 10:27] LABS: BASOPHILS # (AUTO) 0.1 10^3/uL (0.0-0.1); BASOPHILS % (AUTO) 0.4 %; EOSINOPHILS # (AUTO) 0.2 10^3/uL (0.0-0.7); EOSINOPHILS % (AUTO) 1.8 %; HCT - HEMATOCRIT 41.7 % (37.0-47.0); HGB - HEMOGLOBIN 13.4 g/dL (12.0-16.0); LYMPHOCYTES # (AUTO) 3.6 10^3/uL (1.5-3.5); LYMPHOCYTES % (AUTO) 32.5 %; MEAN CORPUSCULAR HEMOGLOBIN 27.7 pg (27.0-31.0); MEAN CORPUSCULAR HGB CONC 32.1 g/dL (32.0-36.0); MEAN CORPUSCULAR VOLUME 86.2 fL (81.0-99.0); MEAN PLATELET VOLUME 9.3 fL (7.9-10.8); MONOCYTES # (AUTO) 0.7 10^3/uL (0.0-1.0); MONOCYTES % (AUTO) 6.3 %; NEUTROPHILS # (AUTO) 6.6 10^3/uL (1.5-6.6); NEUTROPHILS % (AUTO) 58.8 %; PLT - PLATELET COUNT 260 10^3/uL (130-450); RED BLOOD COUNT 4.84 10^6/uL (4.20-5.40); RED CELL DISTRIBUTION WIDTH 12.5 % (12.0-15.0); WHITE BLOOD COUNT 11.2 x10^3/uL (4.8-10.8)
[2022-07-26 10:42] LABS: ALBUMIN 3.7 g/dL (3.2-5.5); BILIRUBIN,TOTAL 0.7 mg/dL (0.2-1.0); CALCIUM 9.3 mg/dL (8.5-10.3); POTASSIUM 4.1 mmol/L (3.5-5.0); TOTAL PROTEIN 7.4 g/dL (6.7-8.2)
--- NOTE | 2022-07-26 10:42 | XRAY Report ---
PROCEDURE: Chest 1 View X-Ray INDICATIONS: cough TECHNIQUE: One view of the chest was acquired. COMPARISON: CXR 11/30/2020. FINDINGS: Surgical changes and devices: None. Lungs and pleura: No pleural effusions or pneumothorax. Lungs are clear. Mediastinum: Mediastinal contours appear normal. Heart size is normal. Bones and chest wall: No suspicious bony lesions. Overlying soft tissues appear unremarkable. IMPRESSION: No acute cardiopulmonary abnormality. Reviewed by: Filipe Sanders MD on 07/26/2022 9:41 AM [facility] Approved by: Filipe Sanders MD on 07/26/2022 9:41 AM [facility] Station ID: [id number]
[2022-07-26 11:54] LABS: B. PARAPERTUSSIS- RESP PCR PAN NOT DETECTED; B. PERTUSSIS- RESP PCR PANEL NOT DETECTED; C. PNEUMONIAE- RESP PCR PANEL NOT DETECTED; CORONAVIRUS 229E-RESP PCR NOT DETECTED; CORONAVIRUS HKU1-RESP PCR NOT DETECTED; CORONAVIRUS NL63-RESP PCR NOT DETECTED; CORONAVIRUS OC43-RESP PCR NOT DETECTED; HUMAN METAPNEUMOVIRUS NOT DETECTED; INFLUENZA A- RESP PCR PANEL NOT DETECTED; INFLUENZA B - RESP PCR PANEL NOT DETECTED; M. PNEUMONIAE- RESP PCR PANEL NOT DETECTED; PARAINFLUENZA VIRUS 1 NOT DETECTED; PARAINFLUENZA VIRUS 2 NOT DETECTED; PARAINFLUENZA VIRUS 3 NOT DETECTED; PARAINFLUENZA VIRUS 4 NOT DETECTED; RHINOVIRUS/ENTEROVIRUS NOT DETECTED; RSV- RESP PCR PANEL NOT DETECTED; SARS-CoV-2 -RESP PCR PANEL NOT DETECTED
[2022-07-26 12:05] VITALS: BP 143/73
== END 2022-07-26 12:30 | disposition home or self-care (01) ==
LOC: ED 09:48
DX: R42 Dizziness and giddiness (principal); R05.9 Cough, unspecified; E11.9 Type 2 diabetes mellitus without complications; Z79.84 Long term (current) use of oral hypoglycemic drugs; Z20.822 Contact with and (suspected) exposure to COVID-19
CPT/HCPCS: 36415; 80053; 83690; 84484; 85025; 87633; 93005; 96361; 96374; 99284

== ENCOUNTER 2022-10-07 11:48 | Outpatient (CLI) | payer MEDICAID ==
[2022-10-07 17:50] LABS: BASOPHILS # (AUTO) 0.1 10^3/uL (0.0-0.1); BASOPHILS % (AUTO) 0.5 %; EOSINOPHILS # (AUTO) 0.1 10^3/uL (0.0-0.7); EOSINOPHILS % (AUTO) 1.4 %; HCT - HEMATOCRIT 43.4 % (37.0-47.0); HGB - HEMOGLOBIN 13.4 g/dL (12.0-16.0); LYMPHOCYTES # (AUTO) 3.3 10^3/uL (1.5-3.5); LYMPHOCYTES % (AUTO) 32.7 %; MEAN CORPUSCULAR HEMOGLOBIN 26.9 pg (27.0-31.0); MEAN CORPUSCULAR HGB CONC 30.9 g/dL (32.0-36.0); MEAN CORPUSCULAR VOLUME 87.1 fL (81.0-99.0); MEAN PLATELET VOLUME 10.2 fL (7.9-10.8); MONOCYTES # (AUTO) 0.5 10^3/uL (0.0-1.0); MONOCYTES % (AUTO) 4.6 %; NEUTROPHILS # (AUTO) 6.2 10^3/uL (1.5-6.6); NEUTROPHILS % (AUTO) 60.5 %; PLT - PLATELET COUNT 272 10^3/uL (130-450); RED BLOOD COUNT 4.98 10^6/uL (4.20-5.40); RED CELL DISTRIBUTION WIDTH 12.4 % (12.0-15.0); WHITE BLOOD COUNT 10.2 x10^3/uL (4.8-10.8)
[2022-10-07 18:07] LABS: ALBUMIN/GLOBULIN RATIO 1.1 (1.0-2.2); ALKALINE PHOSPHATASE 67 IU/L (42-121); ALT ALANINE AMINOTRANSFERASE 26 IU/L (10-60); AST ASPARTATE AMINOTRANSFERASE 23 IU/L (10-42); BILIRUBIN,TOTAL 0.6 mg/dL (0.2-1.0); BUN - BLOOD UREA NITROGEN 25 mg/dL (6-20); CARBON DIOXIDE - CO2 25 mmol/L (21-32); CHLORIDE 101 mmol/L (101-111); CHOL/HDL RATIO 3.4 (<4.4); CHOLESTEROL 208 mg/dL; CREATININE 1.2 mg/dL (0.4-1.0); GFR - MDRD 47 (>89); GLUCOSE 300 mg/dL (70-100); HDL CHOLESTEROL 62 mg/dL; LDL CHOLESTEROL,CALCULATED 119 mg/dL; LDL/HDL RATIO 1.9 (<4.4); POTASSIUM 3.9 mmol/L (3.5-5.0); SODIUM 136 mmol/L (135-145); TOTAL PROTEIN 7.8 g/dL (6.7-8.2); TRIGLYCERIDES 135 mg/dL; VLDL CHOLESTEROL 27 mg/dL
[2022-10-07 18:16] LABS: THYROID STIMULATING HORMONE 0.3 uIU/mL (0.34-5.60)
[2022-10-07 18:51] LABS: FREE T4 (FREE THYROXINE) 1.01 ng/dL (0.58-1.64)
[2022-10-07 20:57] LABS: ESTIMATED AVERAGE GLUCOSE 235 mg/dL (70-100); HEMOGLOBIN A1c% 9.8 % (4.27-6.07)
== END 2022-10-07 11:49 | disposition home or self-care (01) ==
LOC: LAB.N 11:48
PROVIDERS: ATTEND Nurse Practitioner
DX: I10 Essential (primary) hypertension (principal); E11.8 Type 2 diabetes mellitus with unspecified complications; E78.5 Hyperlipidemia, unspecified; R53.83 Other fatigue
CPT/HCPCS: 36415; 80053; 80061; 83036; 83721; 84439; 84443; 85025

== ENCOUNTER 2022-12-18 13:13 | Outpatient (CLI) | payer MEDICAID ==
[2022-12-18 17:35] LABS: BASOPHILS % (AUTO) 0.5 %; EOSINOPHILS # (AUTO) 0.3 10^3/uL (0.0-0.7); EOSINOPHILS % (AUTO) 3.4 %; HCT - HEMATOCRIT 44.5 % (37.0-47.0); LYMPHOCYTES # (AUTO) 2.3 10^3/uL (1.5-3.5); LYMPHOCYTES % (AUTO) 26.8 %; MEAN CORPUSCULAR HEMOGLOBIN 26.8 pg (27.0-31.0); MEAN CORPUSCULAR HGB CONC 31.5 g/dL (32.0-36.0); MEAN CORPUSCULAR VOLUME 85.2 fL (81.0-99.0); MEAN PLATELET VOLUME 9.8 fL (7.9-10.8); MONOCYTES # (AUTO) 0.5 10^3/uL (0.0-1.0); MONOCYTES % (AUTO) 6.3 %; NEUTROPHILS # (AUTO) 5.3 10^3/uL (1.5-6.6); NEUTROPHILS % (AUTO) 62.8 %; PLT - PLATELET COUNT 278 10^3/uL (130-450); RED BLOOD COUNT 5.22 10^6/uL (4.20-5.40); RED CELL DISTRIBUTION WIDTH 12.9 % (12.0-15.0); WHITE BLOOD COUNT 8.4 x10^3/uL (4.8-10.8)
[2022-12-18 17:52] LABS: ALBUMIN 3.9 g/dL (3.2-5.5); BILIRUBIN,TOTAL 0.6 mg/dL (0.2-1.0); CALCIUM 9.1 mg/dL (8.5-10.3)
[2022-12-18 20:49] LABS: ESTIMATED AVERAGE GLUCOSE 220 mg/dL (70-100); HEMOGLOBIN A1c% 9.3 % (4.27-6.07)
== END 2022-12-18 13:14 | disposition home or self-care (01) ==
LOC: LAB.N 13:13
PROVIDERS: ATTEND Nurse Practitioner
DX: E11.8 Type 2 diabetes mellitus with unspecified complications (principal); R11.2 Nausea with vomiting, unspecified
CPT/HCPCS: 36415; 80053; 83036; 85025

== ENCOUNTER 2023-03-21 08:56 | Emergency (ER) | payer MEDICAID ==
--- NOTE | 2023-03-21 09:45 | ED Physician Documentation ---
PD HPI NVD - Stated complaint Stated Complaint: HIGH BLOOD SUGAR - Chief complaint Chief Complaint: General - History obtained from History obtained from: Patient - History of Present Illness Timing - onset: How many hours ago (2), Today Timing - duration: Hours (about 2) Timing - details: Abrupt onset (onset when she rolled to the side while resting on the couch. Abrupt vertigo with nausea and vomitied once. Still vertigo and nausea with head turning, stops when holding still. It has lessened since onset, when it was severe for about 5-10 minutes.), Still present (not as severe currently, but still vertigo with head turning.) Associated symptoms: Dizzy. No: Fever, Chest pain, Near syncope / syncope Contributing factors: Diabetes (checked sugar this morning with symptoms and it was higher than baseline (150s-200).) Similar symptoms before: No diagnosis (has had brief episodes of vertigo when gets up in mornings. Today was much worse.) Recently seen: Not recently seen Review of Systems Constitutional: denies: Fever Nose: reports: Congestion (mild). denies: Rhinorrhea / runny nose, Sinus pressure / pain Throat: reports: Other (she states she feels that her tongue is slightly burning feeling and her taste feels off.). denies: Sore throat Respiratory: denies: Cough Neurologic: denies: Focal weakness, Numbness, Near syncope, Altered mental status, Headache, Head injury PD PAST MEDICAL HISTORY - Past Medical History Cardiovascular: Hypertension Respiratory: Asthma Endocrine/Autoimmune: Type 2 diabetes (insulins and PO meds ("flozin")) - Past Surgical History Past Surgical History: No - Present Medications Home Medications: Ambulatory Orders Medication Instructions Recorded Confirmed Albuterol Sulfate [Proair Hfa 1 puffs PO DAILY 11/18/20 11/30/20 Inhaler] Canagliflozin [Invokana] 100 mg PO DAILY 11/18/20 11/30/20 Glipizide [Glipizide Xl] 10 mg PO DAILY 11/18/20 11/30/20 Ipratropium/Albuterol [Duoneb] 3 ml INH Q6H PRN #30 neb 11/18/20 11/30/20 Lisinopril [Zestril] 40 mg PO DAILY 11/18/20 11/30/20 Nebulizer and Compressor [Easy Air 1 each MC 1-2XD #1 each 11/18/20 11/30/20 Compressor Nebulizer] Simvastatin [Zocor] 80 mg PO HS 11/18/20 11/30/20 metFORMIN [Glucophage] 1,000 mg PO DAILY 11/18/20 11/30/20 predniSONE [Deltasone] 60 mg PO DAILY 5 Days #15 tab 11/18/20 11/30/20 Albuterol Sulf [Ventolin Hfa 3 - 4 puffs INH Q4HR PRN #1 inhaler 11/30/20 Inhaler] Benzonatate [Tessalon] 100 mg PO TID PRN #20 cap 11/30/20 Doxycycline Monohydrate 150 mg PO BID #14 cap 11/30/20 dexAMETHasone [Decadron] 4 mg PO DAILY #7 tablet 11/30/20 Pantoprazole [Protonix] 40 mg PO DAILY #30 tablet 01/02/22 Sucralfate [Carafate] 1 gm PO ACHS #60 tablet 01/02/22 Ondansetron Odt [Zofran] 4 mg TL Q6H PRN #10 tablet 07/26/22 Meclizine HCl [Motion Sickness] 25 mg PO Q6H PRN #30 tablet 03/21/23 - Allergies Allergies/Adverse Reactions: Allergies Allergy/AdvReac Type Severity Reaction Status Date / Time No Known Drug Allergies Allergy Verified 03/21/23 09:09 - Social History Does the pt smoke?: No Smoking Status: Never smoker Does the pt drink ETOH?: No Does the pt have substance abuse?: No - Immunizations Immunizations are current?: Yes - POLST Patient has POLST: No PD ED PE NORMAL - Vitals Vital signs reviewed: Yes - General General: Alert and oriented X 3, No acute distress, Well developed/nourished - HEENT HEENT: PERRL, EOMI (mild nystagmus to left after turning head.) - Neck Neck: Supple, no meningeal sign, No adenopathy - Cardiac Cardiac: RRR, No murmur - Respiratory Respiratory: Clear bilaterally - Abdomen Abdomen: Soft, Non tender - Derm Derm: Normal color, Warm and dry - Neuro Neuro: Alert and oriented X 3, brake liner 2-12 intact, No motor deficit, No sensory deficit, Normal speech, Other (normal arm use without incoordination. Normal gait. ) Eye Opening: Spontaneous Motor: Obeys Commands Verbal: Oriented GCS Score: 15 Results - Vitals Vitals: Vital Signs - 24 hr 03/21/23 03/21/23 03/21/23 09:05 09:26 10:48 Temperature 36.2 C L 37.1 C Heart Rate 66 63 64 Respiratory 16 15 14 Rate Blood Pressure 141/77 H 124/73 121/90 H O2 Saturation 100 100 98 Oxygen O2 Source Room air - Labs Labs: Laboratory Tests 03/21/23 03/21/23 03/21/23 09:14 10:13 10:13 VBG pH 7.366 VBG pCO2 43.7 VBG pO2 38.0 VBG HCO3 24.5 VBG Total CO2 25.8 VBG O2 Saturation 73.7 VBG Base Excess -1.0 Sodium 137 Potassium 4.1 Chloride 104 Carbon Dioxide 24 Anion Gap 9.0 BUN 20 Creatinine 0.8 Estimated GFR (MDRD) 75 L Glucose 199 H POC Whole Bld Glucose 226 H Calcium 9.0 Magnesium 1.8 Total Bilirubin 0.5 AST 23 ALT 23 Alkaline Phosphatase 74 Total Protein 7.9 Albumin 4.0 Globulin 3.9 Albumin/Globulin Ratio 1.0 Lipase 46 PD Medical Decision Making - ED course Complexity details: reviewed results, re-evaluated patient (she is feeling better with the Meclizine. ), considered differential (sounds like positonal vertigo. Could be otolithic but has mild congestion/ abnormal taste feeling, ?viral URI. Blood sugar could indicate brewing infection. I did check lytes, bicarb, and also VBG (potential for acidosis at euglycemic levels with newer diabetes meds ("flozins").), d/w patient Departure - Departure Disposition: 01 Home, Self Care Clinical Impression: Positional vertigo, Elevated blood sugar level Condition: Stable Record reviewed to determine appropriate education?: Yes Instructions: ED BPV Vertigo Follow-Up: Marcelle Gant ARNP [Primary Care Provider] - Prescriptions: Meclizine HCl [Motion Sickness] 25 mg PO Q6H PRN #30 tablet PRN Reason: Vertigo Comments: This sounds like positional vertigo which is commonly from some small calcifications or debris in the inner ear ear/balance center. Sometimes it is this start of symptoms from a head cold or allergies. Use meclizine every 6-8 hours if needed for the vertigo. See how you feel over the next few days. If you develop upper respiratory/head cold type symptoms then that could make sense in just treat the normal head cold symptoms. Otherwise see if your symptoms just improve over the next few days. Follow-up with your primary care if persistent. Get up slowly and move slowly over the next few days to try to minimize triggering of the vertigo. [facility]. Discharge Date/Time: 03/21/23 10:49
[2023-03-21] MEDS ORDERED: diphenhydrAMINE ELIXIR 25 MG/10 ML UDC PO STA (10:04)
[2023-03-21] MEDS ORDERED: MECLIZINE 12.5 MG TABLET PO STA (10:04)
[2023-03-21 10:22] LABS: VBG HCO3 24.5 mmol/L (23-28); VBG OXYGEN SATURATION 73.7 % (60-80); VBG PCO2 43.7 mmHg (41-51); VBG PH 7.366 (7.31-7.41); VBG TOTAL CO2 25.8 mmol/L (24-29)
[2023-03-21 10:30] LABS: BILIRUBIN,TOTAL 0.5 mg/dL (0.2-1.0); CREATININE 0.8 mg/dL (0.4-1.0); MAGNESIUM 1.8 mg/dL (1.7-2.8); POTASSIUM 4.1 mmol/L (3.5-5.0); TOTAL PROTEIN 7.9 g/dL (6.7-8.2)
[2023-03-21 10:50] VITALS: BP 121/90
== END 2023-03-21 10:49 | disposition home or self-care (01) ==
LOC: ED 08:56
DX: R42 Dizziness and giddiness (principal); E11.65 Type 2 diabetes mellitus with hyperglycemia; Z79.84 Long term (current) use of oral hypoglycemic drugs
CPT/HCPCS: 36415; 80053; 82803; 83690; 83735; 99283; 99284; A9270

== ENCOUNTER 2023-04-26 17:21 | Emergency (ER) | payer MEDICAID ==
[2023-04-26 17:44] LABS: BASOPHILS % (AUTO) 0.4 %; EOSINOPHILS # (AUTO) 0.2 10^3/uL (0.0-0.7); EOSINOPHILS % (AUTO) 2.8 %; HCT - HEMATOCRIT 41.7 % (37.0-47.0); HGB - HEMOGLOBIN 13.2 g/dL (12.0-16.0); LYMPHOCYTES # (AUTO) 3.4 10^3/uL (1.5-3.5); LYMPHOCYTES % (AUTO) 43.3 %; MEAN CORPUSCULAR HEMOGLOBIN 27.3 pg (27.0-31.0); MEAN CORPUSCULAR HGB CONC 31.7 g/dL (32.0-36.0); MEAN CORPUSCULAR VOLUME 86.2 fL (81.0-99.0); MONOCYTES # (AUTO) 0.6 10^3/uL (0.0-1.0); MONOCYTES % (AUTO) 7.6 %; NEUTROPHILS # (AUTO) 3.6 10^3/uL (1.5-6.6); NEUTROPHILS % (AUTO) 45.8 %; PLT - PLATELET COUNT 272 10^3/uL (130-450); RED BLOOD COUNT 4.84 10^6/uL (4.20-5.40); RED CELL DISTRIBUTION WIDTH 12.8 % (12.0-15.0); WHITE BLOOD COUNT 7.9 x10^3/uL (4.8-10.8)
[2023-04-26 17:56] LABS: ALBUMIN 4.2 g/dL (3.2-5.5); ALBUMIN/GLOBULIN RATIO 1.4 (1.0-2.2); BILIRUBIN,TOTAL 0.3 mg/dL (0.2-1.0); CREATININE 0.9 mg/dL (0.6-1.3); POTASSIUM 3.8 mmol/L (3.5-4.5); TOTAL PROTEIN 7.1 g/dL (6.4-8.9)
[2023-04-26] MEDS ORDERED: SODIUM CHLORIDE 0.9% 1,000 ML IV STA (18:00)
--- NOTE | 2023-04-26 18:05 | ED Physician Documentation ---
History of Present Illness - Stated complaint Stated Complaint: DIZZY - Chief complaint Chief Complaint: Neuro - Additonal information Additional information: 53-year-old type II diabetic presents to the emergency department for feeling lightheaded and dizzy since this morning. She states that she has an abnormal sensation and bad taste in her mouth and tongue. She also reports some perioral numbness and tingling. Has not had any syncope but feels lightheaded. Sometimes feels off balance. Blood sugars at home have ranged from 120 to nearly 200 over the last several days. No fevers, cough, chest pain, shortness of air. Some nausea but no vomiting. Denies urinary symptoms. No abdominal pain. Brief chart review reveals previous ED visits for similar concerns. Seen most recently in late February for similar was advised meclizine which she feels does not help the symptoms. At this point they appear subacute. On presentation to the emergency department she is a GCS 15 point. No focal neurodeficits. NIHSS of 0. Review of Systems Constitutional: denies: Fever, Chills Nose: reports: Reviewed and negative Throat: reports: Other (Perioral numbness and tingling. Bitter taste in mouth) Cardiac: reports: Reviewed and negative Respiratory: reports: Reviewed and negative GI: reports: Reviewed and negative : reports: Reviewed and negative Neurologic: reports: Numbness. denies: Generalized weakness, Focal weakness, Seizure, Confused, Head injury, LOC Psychiatric: reports: Reviewed and negative PD PAST MEDICAL HISTORY - Past Medical History Cardiovascular: Hypertension Respiratory: Asthma Endocrine/Autoimmune: Type 2 diabetes (insulins and PO meds ("flozin")) - Past Surgical History Past Surgical History: No - Present Medications Home Medications: Ambulatory Orders Medication Instructions Recorded Confirmed Albuterol Sulfate [Proair Hfa 1 puffs PO DAILY 11/18/20 11/30/20 Inhaler] Canagliflozin [Invokana] 100 mg PO DAILY 11/18/20 11/30/20 Glipizide [Glipizide Xl] 10 mg PO DAILY 11/18/20 11/30/20 Ipratropium/Albuterol [Duoneb] 3 ml INH Q6H PRN #30 neb 11/18/20 11/30/20 Lisinopril [Zestril] 40 mg PO DAILY 11/18/20 11/30/20 Nebulizer and Compressor [Easy Air 1 each MC 1-2XD #1 each 11/18/20 11/30/20 Compressor Nebulizer] Simvastatin [Zocor] 80 mg PO HS 11/18/20 11/30/20 metFORMIN [Glucophage] 1,000 mg PO DAILY 11/18/20 11/30/20 predniSONE [Deltasone] 60 mg PO DAILY 5 Days #15 tab 11/18/20 11/30/20 Albuterol Sulf [Ventolin Hfa 3 - 4 puffs INH Q4HR PRN #1 inhaler 11/30/20 Inhaler] Benzonatate [Tessalon] 100 mg PO TID PRN #20 cap 11/30/20 Doxycycline Monohydrate 150 mg PO BID #14 cap 11/30/20 dexAMETHasone [Decadron] 4 mg PO DAILY #7 tablet 11/30/20 Pantoprazole [Protonix] 40 mg PO DAILY #30 tablet 01/02/22 Sucralfate [Carafate] 1 gm PO ACHS #60 tablet 01/02/22 Ondansetron Odt [Zofran] 4 mg TL Q6H PRN #10 tablet 07/26/22 Meclizine HCl [Motion Sickness] 25 mg PO Q6H PRN #30 tablet 03/21/23 - Allergies Allergies/Adverse Reactions: Allergies Allergy/AdvReac Type Severity Reaction Status Date / Time No Known Drug Allergies Allergy Verified 04/26/23 17:24 - Social History Does the pt smoke?: No Smoking Status: Never smoker Does the pt drink ETOH?: No Does the pt have substance abuse?: No - Immunizations Immunizations are current?: Yes - POLST Patient has POLST: No PD ED PE NORMAL - General General: Alert and oriented X 3, No acute distress, Well developed/nourished - HEENT HEENT: Atraumatic - Neck Neck: Supple, no meningeal sign - Cardiac Cardiac: RRR, No murmur - Respiratory Respiratory: No respiratory distress, Clear bilaterally - Abdomen Abdomen: Normal bowel sounds, Soft, Non tender - Derm Derm: Normal color, Warm and dry, No rash - Extremities Extremities: No deformity, Normal ROM s pain - Neuro Neuro: Alert and oriented X 3, recruitment specialist 2-12 intact Eye Opening: Spontaneous Motor: Obeys Commands Verbal: Oriented GCS Score: 15 Results - Vitals Vitals: Vital Signs - 24 hr 04/26/23 04/26/23 04/26/23 17:24 17:48 18:40 Temperature 36.8 C Heart Rate 74 62 Heart Rate [ 71 Sitting] Heart Rate [ 76 Standing] Heart Rate [ 68 Supine] Respiratory 18 15 Rate Blood Pressure 137/72 H 154/77 H Blood Pressure 134/83 H [Sitting] Blood Pressure 130/80 [Standing] Blood Pressure 112/57 L [Supine] O2 Saturation 98 98 Oxygen O2 Source Room air - EKG (time done) 1834 EKG releavant findings:: EKG personally interpreted by author of this note. Relevant findings are: Rate: Rate (enter#) (66) Rhythm: NSR Newcomb: Normal Intervals: Normal MN. No: Prolonged QT QRS: Low voltage Ischemia: Normal ST segments Computer interpretation: Agree with computer - Labs Labs: Laboratory Tests 04/26/23 04/26/23 04/26/23 17:39 17:39 17:39 WBC 7.9 RBC 4.84 Hgb 13.2 Hct 41.7 MCV 86.2 MCH 27.3 MCHC 31.7 L RDW 12.8 Plt Count 272 MPV 9.0 Neut # (Auto) 3.6 Lymph # (Auto) 3.4 Coal # (Auto) 0.6 Eos # (Auto) 0.2 Baso # (Auto) 0.0 Absolute Nucleated RBC 0.00 Nucleated RBC % 0.0 VBG pH VBG pCO2 VBG pO2 VBG HCO3 VBG Total CO2 VBG O2 Saturation VBG Base Excess Sodium 137 Potassium 3.8 Chloride 106 Carbon Dioxide 25 Anion Gap 6.0 BUN 20 Creatinine 0.9 Estimated GFR (MDRD) 65 L Glucose 187 H Calcium 9.0 Total Bilirubin 0.3 AST 15 ALT 15 Alkaline Phosphatase 91 Total Protein 7.1 Albumin 4.2 Globulin 2.9 Albumin/Globulin Ratio 1.4 Lipase 36 Urine Color Urine Clarity Urine pH Ur Specific [place] Urine Protein Urine Glucose (UA) Urine Ketones Urine Occult Blood Urine Nitrite Urine Bilirubin Urine Urobilinogen Ur Leukocyte Esterase Ur Microscopic Review Urine Culture Comments Nasal Adenovirus (PCR) Nasal B. parapertussis DNA (PCR) Nasal Coronavir 229E PCR Nasal Coronavir HKU1 PCR Nasal Coronavir NL63 PCR Nasal Coronavir OC43 PCR Nasal Enterovir/Rhinovir PCR Nasal Influenza B PCR Nasal Influenza A PCR Nasal Parainfluen 1 PCR Nasal Parainfluen 2 PCR Nasal Parainfluen 3 PCR Nasal Parainfluen 4 PCR Nasal RSV (PCR) Nasal B.pertussis DNA PCR Nasal C.pneumoniae (PCR) Matthew Human Metapneumo PCR Nasal M.pneumoniae (PCR) Nasal SARS-CoV-2 (PCR) Serum Ketones SMALL H 04/26/23 04/26/23 04/26/23 18:11 18:38 19:19 WBC RBC Hgb Hct MCV MCH MCHC RDW Plt Count MPV Neut # (Auto) Lymph # (Auto) Coal # (Auto) Eos # (Auto) Baso # (Auto) Absolute Nucleated RBC Nucleated RBC % VBG pH 7.338 VBG pCO2 42.0 VBG pO2 28.2 VBG HCO3 22.0 L VBG Total CO2 23.3 L VBG O2 Saturation 55.0 L VBG Base Excess -3.6 L Sodium Potassium Chloride Carbon Dioxide Anion Gap BUN Creatinine Estimated GFR (MDRD) Glucose Calcium Total Bilirubin AST ALT Alkaline Phosphatase Total Protein Albumin Globulin Albumin/Globulin Ratio Lipase Urine Color YELLOW Urine Clarity CLEAR Urine pH 5.5 Ur Specific [place] 1.015 Urine Protein NEGATIVE Urine Glucose (UA) >=1000 H Urine Ketones NEGATIVE Urine Occult Blood NEGATIVE Urine Nitrite NEGATIVE Urine Bilirubin NEGATIVE Urine Urobilinogen 0.2 (NORMAL) Ur Leukocyte Esterase NEGATIVE Ur Microscopic Review NOT INDICATED Urine Culture Comments NOT INDICATED Nasal Adenovirus (PCR) NOT DETECTED Nasal B. parapertussis DNA (PCR) NOT DETECTED Nasal Coronavir 229E PCR NOT DETECTED Nasal Coronavir HKU1 PCR NOT DETECTED Nasal Coronavir NL63 PCR NOT DETECTED Nasal Coronavir OC43 PCR NOT DETECTED Nasal Enterovir/Rhinovir PCR NOT DETECTED Nasal Influenza B PCR NOT DETECTED Nasal Influenza A PCR NOT DETECTED Nasal Parainfluen 1 PCR NOT DETECTED Nasal Parainfluen 2 PCR NOT DETECTED Nasal Parainfluen 3 PCR NOT DETECTED Nasal Parainfluen 4 PCR NOT DETECTED Nasal RSV (PCR) NOT DETECTED Nasal B.pertussis DNA PCR NOT DETECTED Nasal C.pneumoniae (PCR) NOT DETECTED Matthew Human Metapneumo PCR NOT DETECTED Nasal M.pneumoniae (PCR) NOT DETECTED Nasal SARS-CoV-2 (PCR) NOT DETECTED Serum Ketones - Rads (name of study) Ct angio head/neck Relevant Findings:: Final report received (Unremarkable CT angiogram head neck without large vessel occlusion, aneurysm or significant stenosis. Left thyroid nodule. Biapical pulmonary emphysema.) PD Medical Decision Making - ED course Complexity details: reviewed results, re-evaluated patient, considered differential, d/w patient ED course: 53-year-old female presents to the emergency department for evaluation of subacute lightheadedness, dizziness, perioral numbness, tingling and a bitter taste in her mouth. She has been seen previously for this. Most recently in late February. On presentation she is alert and oriented. No focal neurodeficits. NIHSS of 0. I did obtain CBC, electrolytes, ketones and VBG. Per my interpretation there is no acidosis. Her electrolytes reveal mildly elevated glucose at 187. No acidosis as her CO2 is normal. Her pH was 7.33 on VBG. However serum ketones are positive. Respiratory PCR panel was negative. Clinically the patient presents as having ketosis without acidosis. I suspect this is due to relative insulin deficiency in the setting of her diabetes. Believe the ketosis is likely the cause of the bitter taste that she is having in her mouth. I am however given her reported symptoms of perioral numbness and tingling I did obtain angiograms of the head and neck which were without acute findings. Clinically the patient does not present as having a stroke or cerebellar signs. She was able to ambulate easily in the hallway without assistance. At this time the patient is stable for discharge home. I am advising her to have very close follow-up with her primary care doctor. I suspect she would benefit from referral to an client services director for longer-term management of her diabetes as she maintains ketosis despite relatively good blood glucose control. Usual emergent return precautions were discussed for worsening symptoms. Departure - Departure Disposition: 01 Home, Self Care Clinical Impression: Ketosis due to diabetes Condition: Stable Record reviewed to determine appropriate education?: Yes Follow-Up: Marcelle Gant ARNP [Primary Care Provider] - Comments: You were seen today in the emergency department because you have been having numbness and tingling around your mouth, [place] sensation in your tongue feeling lightheaded and dizzy. The CT angiograms of your head and neck were without any worrisome findings. The blood flow through your brain is normal. You are not having a stroke. Your labs today were essentially normal with the exception of a mildly elevated glucose of 187. You are not acidotic but we did check for ketones in your blood and they were positive. This is a condition called ketosis and it is usually associated in diabetics who are not receiving enough insulin or maintain higher levels of sugar than they should. It is important that you discuss this ED visit with your primary care provider. They may need to adjust your insulin dosing or make a referral for you to an client services director for better management of your diabetes. Return immediately to the ER if you find that you are having worsening symptoms. Forms: PCP List NIHSS - Time Time: 18:00 - Level of Consciousness Level of consciousness: (0) Alert, Keenly responsive LOC Questions: (0) Answers both Q's correct LOC Commands: (0) Performs both correctly - Gaze Best Gaze: (0) Normal - Visual Visual: (0) No loss - Facial Palsy Facial Palsy: (0) Normal, symmetrical movement - Motor Arms (both separate) Motor Arm (right): (0) No drift Motor Arm (left): (0) No drift - Motor Legs (both separate) Motor Leg (right): (0) No drift Motor Leg (left): (0) No drift - Limb Ataxia Limb Ataxia: (0) Absent - Sensory Sensory: (0) Normal - Best Language Best Language: (0) No aphasia - Dysarthria Dysarthria: (0) Normal - Extinction and Inattention (formally neg Extinction and inattention: (0) No abnormality - Total Score/Results Total Score/Result: 0
[2023-04-26] MEDS ORDERED: iohexoL-300 100 ML VIAL ONE (18:11)
[2023-04-26 18:23] LABS: BILIRUBIN,URINE NEGATIVE (NEGATIVE); GLUCOSE, URINE (UA) >=1000 mg/dL (NEGATIVE); KETONES,URINE (UA) NEGATIVE (NEGATIVE); LEUKOCYTE ESTERASE, URINE NEGATIVE (NEGATIVE); NITRITE,URINE NEGATIVE (NEGATIVE); OCCULT BLOOD,URINE NEGATIVE (NEGATIVE); PH,URINE 5.5 PH (5.0-7.5); PROTEIN,URINE NEGATIVE (NEGATIVE); UROBILINOGEN,URINE 0.2 (NORMAL) E.U./dL (NORMAL)
[2023-04-26 18:24] LABS: CLARITY,URINE CLEAR (CLEAR)
[2023-04-26] MEDS ORDERED: iohexoL-300 100 ML VIAL IVP ONE (18:31)
--- NOTE | 2023-04-26 18:58 | CT Report ---
PROCEDURE: CT Angio Head/Neck INDICATIONS: dizziness TECHNIQUE: Pre-contrast 4.5 mm thick sections acquired from the foramen magnum to the vertex. After the adminis tration of intravenous contrast, 1 mm thick sections acquired from the aortic arch through the [place] of [place]. Post-contrast 4.5 mm thick sections then re-acquired from the foramen magnum to the vert ex [id number] (MIP) were acquired of the central intracranial vasculature and neck separately. For radiation dose reduction, the following was used: automated exposure control, adju stment of mA and/or kV according to patient size. CONTRAST: 80ml omni 300 COMPARISON: None. FINDINGS: Image quality: Excellent. HEAD CT ANGIOGRAPHY: Anterior circulation: Intracranial internal carotid arteries are normal in size and flow. The flow within the paired anterior cerebral arteries is normal and symmetric. The flow within the middle cer ebral arteries is normal and symmetric. The anterior communicating artery is seen. No aneurysms are seen. Posterior circulation: Visualized portions of the vertebral arteries demonstrate normal caliber, and join to form a normal appearing basilar artery. Flow within the posterior cerebral arteries is norm al and symmetric. No aneurysms are seen. NECK CT ANGIOGRAPHY: Carotid system: The great vessels demonstrate a conventional anatomy as they arise from the aortic a rch. The origins of the common carotid arteries appear patent. The common carotid arteries demonstr ate normal caliber and courses. The bifurcation regions are both widely patent. The internal caroti d arteries demonstrate normal calibers and courses. Posterior circulation: The origins of the vertebral arteries both appear widely patent. The more dye perior extracranial portions of both vertebral arteries also demonstrate normal courses and calibers. They join to form a normal appearing basilar artery. Soft tissues: 2.7 x 2.3 cm left thyroid nodule noted. Emphysematous changes noted in the pulmonary ap ices. Scattered nonenlarged deep cervical lymph nodes Bones: No suspicious bony lesions. Visualized cervical spine appears normally aligned. IMPRESSION: Unremarkable CT angiogram of the head and neck without large vessel occlusion, aneurysm or significan t stenosis. Incidental left thyroid nodule 2.7 x 2.3 cm. Consider follow-up ultrasound. Biapical pulmonary emphysema The estimate of stenosis included in the report of the imaging study was calculated using the NASCET method Reviewed by: Arley Chakraborty MD on 04/26/2023 5:57 PM AKDT Approved by: Arley Chakraborty MD on 04/26/2023 5:57 PM STEVE Station ID: [id number]
[2023-04-26] MEDS ORDERED: INSULIN REGULAR HUMAN 300 UNIT/3 ML VIAL IVP STA (19:07)
[2023-04-26 19:24] LABS: VBG PH 7.338 (7.31-7.41); VBG PO2 28.2 mmHg (25-47); VBG TOTAL CO2 23.3 mmol/L (24-29)
[2023-04-26 19:25] LABS: VBG BASE EXCESS -3.6 mmol/L (-2 - +2)
[2023-04-26 19:35] LABS: B. PARAPERTUSSIS- RESP PCR PAN NOT DETECTED; B. PERTUSSIS- RESP PCR PANEL NOT DETECTED; C. PNEUMONIAE- RESP PCR PANEL NOT DETECTED; CORONAVIRUS 229E-RESP PCR NOT DETECTED; CORONAVIRUS HKU1-RESP PCR NOT DETECTED; CORONAVIRUS NL63-RESP PCR NOT DETECTED; CORONAVIRUS OC43-RESP PCR NOT DETECTED; HUMAN METAPNEUMOVIRUS NOT DETECTED; INFLUENZA A- RESP PCR PANEL NOT DETECTED; INFLUENZA B - RESP PCR PANEL NOT DETECTED; M. PNEUMONIAE- RESP PCR PANEL NOT DETECTED; PARAINFLUENZA VIRUS 1 NOT DETECTED; PARAINFLUENZA VIRUS 2 NOT DETECTED; PARAINFLUENZA VIRUS 3 NOT DETECTED; PARAINFLUENZA VIRUS 4 NOT DETECTED; RHINOVIRUS/ENTEROVIRUS NOT DETECTED; RSV- RESP PCR PANEL NOT DETECTED; SARS-CoV-2 -RESP PCR PANEL NOT DETECTED
[2023-04-26 19:55] VITALS: BP 142/81
== END 2023-04-26 19:54 | disposition home or self-care (01) ==
LOC: ED 17:21
DX: E11.10 Type 2 diabetes mellitus with ketoacidosis without coma (principal); E11.65 Type 2 diabetes mellitus with hyperglycemia; Z79.84 Long term (current) use of oral hypoglycemic drugs; Z20.822 Contact with and (suspected) exposure to COVID-19
CPT/HCPCS: 36415; 70496; 70498; 80053; 81003; 82009; 82803; 83690; 85025; 87633; 93005; 99284; Q9967; 81001; 87086

== ENCOUNTER 2023-05-29 09:45 | Emergency (ER) | payer MEDICAID ==
--- NOTE | 2023-05-29 09:57 | ED Physician Documentation ---
PD HPI HEENT - Stated complaint Stated Complaint: DIZZINESS,NAUSEA,JAW PX - Chief complaint Chief Complaint: Neuro - History obtained from History obtained from: Patient - History of Present Illness Timing - onset: Yesterday Timing - duration: Seconds Timing - details: Abrupt onset (has had vertiog symptoms when stands up or turns head since yesterday. Improves after holding still several seconds. No headache.), Intermittant Associated symptoms: Congestion. No: Fever, Facial swelling Recently seen: Emergency Dept (1 month ago for similar, and had labs/CT angio head. No diagnosis.) Review of Systems Constitutional: denies: Fever, Chills Eyes: denies: Loss of vision, Decreased vision Nose: reports: Congestion. denies: Rhinorrhea / runny nose Throat: denies: Sore throat Cardiac: denies: Chest pain / pressure, Palpitations Respiratory: denies: Cough GI: reports: Nausea. denies: Abdominal Pain, Vomiting Musculoskeletal: denies: Neck pain Neurologic: denies: Focal weakness, Numbness, Altered mental status, Headache PD PAST MEDICAL HISTORY - Past Medical History Cardiovascular: Hypertension Respiratory: Asthma Endocrine/Autoimmune: Type 2 diabetes (insulins and PO meds ("flozin")) - Past Surgical History Past Surgical History: No - Present Medications Home Medications: Ambulatory Orders Medication Instructions Recorded Confirmed Albuterol Sulfate [Proair Hfa 1 puffs PO DAILY 11/18/20 11/30/20 Inhaler] Canagliflozin [Invokana] 100 mg PO DAILY 11/18/20 11/30/20 Glipizide [Glipizide Xl] 10 mg PO DAILY 11/18/20 11/30/20 Ipratropium/Albuterol [Duoneb] 3 ml INH Q6H PRN #30 neb 11/18/20 11/30/20 Lisinopril [Zestril] 40 mg PO DAILY 11/18/20 11/30/20 Nebulizer and Compressor [Easy Air 1 each MC 1-2XD #1 each 11/18/20 11/30/20 Compressor Nebulizer] Simvastatin [Zocor] 80 mg PO HS 11/18/20 11/30/20 metFORMIN [Glucophage] 1,000 mg PO DAILY 11/18/20 11/30/20 predniSONE [Deltasone] 60 mg PO DAILY 5 Days #15 tab 11/18/20 11/30/20 Albuterol Sulf [Ventolin Hfa 3 - 4 puffs INH Q4HR PRN #1 inhaler 11/30/20 Inhaler] Benzonatate [Tessalon] 100 mg PO TID PRN #20 cap 11/30/20 Doxycycline Monohydrate 150 mg PO BID #14 cap 11/30/20 dexAMETHasone [Decadron] 4 mg PO DAILY #7 tablet 11/30/20 Pantoprazole [Protonix] 40 mg PO DAILY #30 tablet 01/02/22 Sucralfate [Carafate] 1 gm PO ACHS #60 tablet 01/02/22 Ondansetron Odt [Zofran] 4 mg TL Q6H PRN #10 tablet 07/26/22 Meclizine HCl [Motion Sickness] 25 mg PO Q6H PRN #30 tablet 03/21/23 Cetirizine [ZyrTEC] 10 mg PO DAILY #15 tablet 05/29/23 Pantoprazole [Protonix] 40 mg PO DAILY 30 Days #30 tablet 05/29/23 - Allergies Allergies/Adverse Reactions: Allergies Allergy/AdvReac Type Severity Reaction Status Date / Time No Known Drug Allergies Allergy Verified 04/26/23 17:24 - Social History Does the pt smoke?: No Smoking Status: Never smoker Does the pt drink ETOH?: No Does the pt have substance abuse?: No - Immunizations Immunizations are current?: Yes - POLST Patient has POLST: No PD ED PE NORMAL - Vitals Vital signs reviewed: Yes - General General: Alert and oriented X 3, No acute distress, Well developed/nourished - HEENT HEENT: PERRL, EOMI (no nystagmus noted, but vertigo not present while lying on bed. head still. ), Pharynx benign - Neck Neck: Supple, no meningeal sign, No adenopathy, No bruit - Cardiac Cardiac: RRR, No murmur - Respiratory Respiratory: No respiratory distress, Clear bilaterally - Abdomen Abdomen: Soft, Non tender - Derm Derm: Normal color, Warm and dry - Neuro Neuro: Alert and oriented X 3, display associate 2-12 intact, No motor deficit, No sensory deficit, Normal speech Eye Opening: Spontaneous Motor: Obeys Commands Verbal: Oriented GCS Score: 15 Results - Vitals Vitals: Vital Signs - 24 hr 05/29/23 05/29/23 05/29/23 09:49 11:53 12:45 Temperature 36.7 C Heart Rate 73 68 73 Respiratory 20 18 18 Rate Blood Pressure 133/63 H 107/64 108/68 O2 Saturation 99 99 100 Oxygen O2 Source Room air - Labs Labs: Laboratory Tests 05/29/23 10:31 Sodium 135 Potassium 3.9 Chloride 103 Carbon Dioxide 26 Anion Gap 6.0 BUN 15 Creatinine 0.9 Estimated GFR (MDRD) 65 L Glucose 331 H Calcium 9.3 Magnesium 1.7 Total Bilirubin 0.4 AST 15 ALT 17 Alkaline Phosphatase 80 C-Reactive Protein 0.5 Total Protein 7.1 Albumin 4.0 Globulin 3.1 Albumin/Globulin Ratio 1.3 Lipase 52 PD Medical Decision Making - ED course Complexity details: reviewed old records (ED visit 04/26/[address] angio and labs. ), reviewed results, d/w patient Departure - Departure Disposition: Home, Self Care Condition: Stable Record reviewed to determine appropriate education?: Yes Follow-Up: Marcelle Gant ARNP [Primary Care Provider] - [facility] [Provider Group] Prescriptions: Pantoprazole [Protonix] 40 mg PO DAILY 30 Days #30 tablet Cetirizine [ZyrTEC] 10 mg PO DAILY #15 tablet Comments: Your basic chemistry panel/electrolytes are looking okay. Your blood sugar was all elevated here today. It sounds like your blood sugars that you check at h ome have been in the reasonable range. I would not change your insulin nor metformin at this point. The dizziness sounds like it in your ear type of vertigo. We gave a dose of a anti-inflammatory here today so you may notice your blood sugars elevate some for a couple of days and then should resume the normal level. I would add cetirizine antihistamine daily for the next 2 weeks. Continue with the meclizine every 6-8 hours if needed for vertigo. You can use 2 tablets every 8 hours if needed. Since you have had recurrent episodes of this now for a few months, I would suggest perhaps following up with ear nose and throat (ENT) specialist to see if they have other ideas on evaluation or treatment for this. There is a group in [employer] and I provided their number. Otherwise follow-up with your primary care. I did write a prescription for your stomach acid medication which by prior prescription was pantoprazole. I wrote for a months worth to give you time to get refills from your primary care. Follow-up with your primary care in the next week or so, call for an appointment. [facility] Forms: PCP List Discharge Date/Time: 05/29/23 12:46
[2023-05-29] MEDS ORDERED: NAPROXEN 250 MG TABLET PO STA (11:11)
[2023-05-29] MEDS ORDERED: MECLIZINE 12.5 MG TABLET PO STA (11:11)
[2023-05-29 11:30] LABS: ALBUMIN/GLOBULIN RATIO 1.3 (1.0-2.2); BILIRUBIN,TOTAL 0.4 mg/dL (0.2-1.0); CALCIUM 9.3 mg/dL (8.5-10.3); CREATININE 0.9 mg/dL (0.6-1.3); CRP - C-REACTIVE PROTEIN 0.5 mg/dL (<0.5); MAGNESIUM 1.7 mg/dL (1.7-2.3); POTASSIUM 3.9 mmol/L (3.5-4.5); TOTAL PROTEIN 7.1 g/dL (6.4-8.9)
[2023-05-29] MEDS ORDERED: dexAMETHasone 4 MG TABLET PO STA (12:32)
[2023-05-29 12:48] VITALS: BP 108/68; O2SAT 100
== END 2023-05-29 12:46 | disposition home or self-care (01) ==
LOC: ED 09:45
DX: R42 Dizziness and giddiness (principal); E11.65 Type 2 diabetes mellitus with hyperglycemia; Z79.4 Long term (current) use of insulin; Z79.84 Long term (current) use of oral hypoglycemic drugs
CPT/HCPCS: 36415; 80053; 83690; 83735; 86140; 99283; 99284; A9270; J8540